=== PATIENT | male | born 1975 | race African-American/Black ===

== ENCOUNTER 2016-09-11 01:28 | Emergency (ER) | payer SELFPAY ==
[~2016-09-11] VITALS: Ht 177.8 cm; Wt 80.0 kg
[~2016-09-11 01:28] MED LIST: DOXY100T PO; LORT5TAB PO; SULF-154 PO; Z.0.NO CURRENT MEDS
[2016-09-11 01:31] VITALS: BP 138/84; PULSE 95; RESP 16
[2016-09-11] MEDS ORDERED: LIDOCAINE HCL 1% 50 ML VIAL IM ONE (01:45)
[2016-09-11] MEDS ORDERED: cefTRIAXone 250 MG VIAL IM ONE (01:45)
--- NOTE | 2016-09-11 01:53 | PD ---
HPI Chief Complaint: Complaint Time Seen by Provider: 01:50 Travel History International Travel<30 days: No Contact w/Intl Traveler<30days: No Traveled to known affect area: No History of Present Illness HPI 40-year-old black male presents to emergency department for treatment of possible STD exposure. The patient states that his had extramarital sex. She was seen in the emergency department was told that she had a bacterial infection. He presents for treatment of possible STD. He states that he has had some mild burning with urination. No discharge. No rashes or lesions. PFSH Past Medical History Medical History: Denies Significant Hx Tetanus Vaccination: < 5 Years Past Surgical History Surgical History: No Previous Surgery Social History Alcohol Use: Yes Tobacco Use: Yes Substance Use: No Allergies-Medications (Allergen,Severity, Reaction): Coded Allergies: No Known Allergies (Verified , 09/11/16) Reported Meds & Prescriptions Reported Meds & Active Scripts Active Lortab 5/500 (Acetaminophen/Hydrocodone Bitart) 5 Mg/500 Mg Tab 1 Tab PO Q6HPRN FOR PAIN Septra Ds (Trimethoprim/Sulfamethoxazole) Tab 1 Tab PO BID Doxycycline Hyclate 100 Mg Tab 100 Mg PO BID Reported No Current Meds (Miscellaneous Medication) Misc Review of Systems Except as stated in HPI: all other systems reviewed are Neg Physical Exam Narrative GENERAL: This is a well-nourished, well-developed patient, in no apparent distress. SKIN: No rashes, ecchymoses or lesions. Warm and dry. HEAD: Atraumatic. Normocephalic. EYES: PERRL, EOMI, no discharge or injection. No scleral icterus. EARS: Clear NOSE: Nasal turbinates appear normal. THROAT: Mucosa pink and moist. Airway patent. NECK: Trachea midline. supple, moves head freely. LUNGS: Clear to auscultation. CV: Regular in rhythm. ABDOMEN: Soft nontender. EXT: No clubbing cyanosis or edema. GENITOURINARY: Circumcised. Testes descended bilaterally without evidence of rotation. No lesions or erythema. No urethral discharge. Data Data Last Documented VS Vital Signs Date Time Temp Pulse Resp B/P Pulse Ox O2 Delivery O2 Flow Rate FiO2 09/11/16 01:31 95 16 138/84 99 Orders Gc And Chlamydia Pcr (09/11/16 01:33) Ua Includes Microscopic (09/11/16 01:33) Ceftriaxone Inj (Rocephin Inj) (09/11/16 01:45) Lidocaine 1% Inj (50 Ml) (Xylocaine 1% I (09/11/16 01:45) Ceftriaxone Inj (Rocephin Inj) (09/11/16 01:45) MDM Medical Decision Making Medical Screen Exam Complete: Yes Emergency Medical Condition: Yes Medical Record Reviewed: Yes Differential Diagnosis MDM: Moderate Differential diagnoses: Chlamydia, gonorrhea, syphilis, chancroid, hepatitis, HIV, herpes Narrative Course Patient is given Zithromax 1 g by mouth, Rocephin 250 IM. This is an STD exposure Diagnosis Primary Impression: STD exposure Patient Instructions: General Instructions Additional Instructions: Rest. Partner notification. Follow-up with the [facility] for further STD testing such as HIV, syphilis and hepatitis. No intercourse until all partners treated. Always use a condom. Return to the ER if any problems. Med/Other Pt SpecificInfo: No Meds Exist/No RX given Disposition: 01 DISCHARGE HOME Condition: Stable Tom Myers September 11, 2016 01:53
[2016-09-11] MEDS ORDERED: AZITHROMYCIN PWD FOR SUSP 1 GM PACKET PO ONE (02:15)
[2016-09-11 02:20] LABS: BACTERIA, URINE RARE /hpf; BLOOD, URINE NEG (NEG); GLUCOSE,URINE NEG (NEG); KETONE, URINE NEG (NEG); NITRITE,URINE NEG (NEG); PH, URINE 5.5 (5.0-8.5); URINE COLOR COLORLESS (YELLW/STRAW)
[2016-09-11 05:45] LABS: CHLAMYDIA PCR NOT DETECTED (NOT DETECT); NEISSERIA PCR NOT DETECTED (NOT DETECT)
== END 2016-09-11 02:54 | disposition home or self-care (01) ==
LOC: NEPD 01:28
DX: R30.0 Dysuria (principal); Z20.2 Contact with and (suspected) exposure to infections with a predominantly sexual mode of transmission
CPT/HCPCS: 81001; 87491; 87591; 96372; 99283; J0696